=== PATIENT | female | born 1975 | race Caucasian/White ===

== ENCOUNTER 2023-09-12 10:04 | Emergency (ER) | payer OTHER ==
[2023-09-12 10:25] VITALS: RESP 18; TEMP 97.8
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
[2023-09-12] MEDS ORDERED: DELTASONE 20 MG ONE (11:00)
[2023-09-12] MEDS ORDERED: Pepcid 20 MG ONE (11:00)
[2023-09-12] MEDS: DELTASONE 20 MG PO ONE (11:02)
[2023-09-12 11:05] VITALS: BP 106/83; PULSE 155
[2023-09-12] MEDS: Pepcid 20 MG PO SCH (11:05)
[2023-09-12 11:41] VITALS: O2SAT 100
== END 2023-09-12 11:47 | disposition home or self-care (01) ==
LOC: ED 10:04
DX: L23.9 Allergic contact dermatitis, unspecified cause (principal); I10 Essential (primary) hypertension; Z28.310 Unvaccinated for COVID-19
CPT/HCPCS: 99282; A9270-GY